=== PATIENT | female | born 1940 | race Caucasian/White ===

== ENCOUNTER 2019-01-14 11:48 | Emergency (ER) | payer OTHER, BC ==
[2019-01-14 11:55] VITALS: BP 147/66
[2019-01-14] MEDS ORDERED: AMOXICILLIN/CLAVULANATE POT 875/125 MG TAB PO ONE (12:25)
--- NOTE | 2019-01-14 12:26 | EDPHY ---
H & P Stated Complaint: L LOWER ABD PAIN Time Seen by Provider: 01/14/19 12:13 HPI/ROS: CHIEF COMPLAINT: Left lower quadrant pain HISTORY OF PRESENT ILLNESS: 78-year-old female with history of diverticulitis presents with left lower quadrant pain. Onset of moderate left lower quadrant pain at 4:00 a.m.. The pain is moderate and, without alleviating or aggravating factors. Ate breakfast this morning. 8-10 prior episodes of diverticulitis, similar sx previously. Augmentin and Cipro/Flagyl have resolved infection in past. No fever, vomiting or urinary symptoms. REVIEW OF SYSTEMS: complete 10 point ROS reviewed and is negative except for the noted elements in the HPI - Personal History Current Tetanus Diphtheria and Acellular Pertussis (TDAP): Unsure - Medical/Surgical History Hx Asthma: Yes Hx Chronic Respiratory Disease: No Hx Diabetes: No Hx Cardiac Disease: No Hx Renal Disease: No Hx Cirrhosis: No Hx Alcoholism: No Hx HIV/AIDS: No Hx Splenectomy or Spleen Trauma: No Other PMH: HTN DIVERTICULITIS HYSTERECTOMY/ HERNIA - Social History Smoking Status: Never smoked - Physical Exam Exam: General Appearance: Alert, pleasant, well-appearing Eyes: Pupils equal and round, no conjunctival pallor ENT, Mouth: Mucous membranes moist Neck: Normal inspection Respiratory: Lungs are clear to auscultation Cardiovascular: Regular rate and rhythm Gastrointestinal: Abdomen is soft, left lower quadrant tenderness, no peritoneal signs Neurological: A&O, nonfocal, normal gait Skin: Warm and dry Extremities: Normal inspection Psychiatric: Mood and affect normal Constitutional: Initial Vital Signs Temperature (C) 37 C 01/14/19 11:52 Heart Rate 66 01/14/19 11:52 Respiratory Rate 18 01/14/19 11:52 Blood Pressure 147/66 H 01/14/19 11:52 O2 Sat (%) 96 01/14/19 11:52 O2 Delivery Mode Room Air Allergies/Adverse Reactions: propoxyphene napsylate [From Darvon-N] Allergy (Verified 05/05/12 08:03) Home Medications: Medication Instructions Recorded Aspirin [Aspirin 81mg (OTC)] 81 mg PO DAILY@05/05/12 Atorvastatin Calcium [Lipitor 10 10 mg PO DAILY@05/05/12 mg (RX)] Cholecalciferol Vit D3 [Vitamin D3 400 units PO DAILY@05/05/12 400 units (OTC)] Cyanocobalamin [Vitamin B12 100 500 mcg PO DAILY@05/05/12 MCG (OTC)] Herbals/Supplements -Info Only 1 each PO AD 05/05/12 Olmesartan/Hydrochlorothiazide 1 each PO DAILY@05/05/12 [Benicar Hct 40-12.5 mg Tablet] Amlodipine Besylate 01/14/19 Amoxicillin/Clavulanate Pot 875 mg PO BID #19 tab 01/14/19 [Augmentin 875 MG TAB (RX)] Benicar 01/14/19 Breo Ellipta 100-25 Mcg INH 01/14/19 Lipitor 01/14/19 Medical Decision Making ED Course/Re-evaluation: This is a well-appearing patient who presents with left lower quadrant pain, typical of prior episodes of diverticulitis. I do not feel that laboratory testing or imaging is indicated today. Augmentin 875 mg orally given. Prescription for Augmentin given. Warning signs discussed. Differential Diagnosis: includes though not limited to appy, SBO, abscess, bowel perforation, UTI - Data Points Medications Given: Discontinued Medications Amoxicillin/Clavulanate Potassium (Augmentin 875mg) 875 mg PO EDNOW ONE PRN Reason: Protocol Stop: 01/14/19 12:26 Last Admin: 01/14/19 12:32 Dose: 875 mg Departure - Departure Disposition: Home, Routine, Self-Care Clinical Impression: Diverticulitis Condition: Good Instructions: Diverticulitis (ED), Diverticulitis Diet (ED) Additional Instructions: Take Tylenol or ibuprofen as needed for pain. Return for worsening symptoms or any concerns. Referrals: Marek Willard MD [Medical Doctor] - As per Instructions Prescriptions: Amoxicillin/Clavulanate Pot [Augmentin 875 MG TAB (RX)] 875 mg PO BID #19 tab
== END 2019-01-14 12:40 | disposition home or self-care (01) ==
DX: K57.32 Diverticulitis of large intestine without perforation or abscess without bleeding (principal)